=== PATIENT | male | born 1945 | race Caucasian/White ===

== ENCOUNTER → 2021-06-10 | Day surgery (SDC) | payer MEDICARE, OTHER ==
[~2021-06-10] MED LIST: ACETAMINOPHEN 500 MG TABLET PO PRN; ALBU2.5V8 IH; ASPI-482 PO; BALANCED SALT IRRIG SOLN NO.2 500 ML IO ONE; BENZONATATE 100 MG CAPSULE. PO PRN; BRIMONIDINE 0.2% OPHTH SOLUTION 5ML BOTTLE. OD ONE; CARV12.5 PO; CEFUROXIME OPHTH 4 MG/0.4 ML SYRINGE. OD ONE; CHOL20002 PO; CHONDROIT-SOD-HYALURONATE KIT. OD ONE; DOXA4TAB2 PO; IBUPROFEN 200 MG TABLET PO PRN; INSU100I13 SQ; INSU100I17 SQ; IPRATRPIUM/ALBUTEROL 0.5/2.5MG 3 ML NEBU. NEB PRN; IV RINGERS SOLUTION,LACTATED 1,000 ML IV SCH; LIDO/EPI IN BSS OPHTH 2.7 ML SYRINGE. OD ONE; LIDOCAINE 2% JELLY 6ML IN APPLICATOR. ONE; MAGNESIUM-VIT1 EACH PO; METF1000 PO; MIDAZOLAM HCL PF 2 MG/2 ML VIAL. IV ONE; ONDANSETRON PF 4 MG/2 ML VIAL. IV PRN; PHENYLEPHRINE 10% OPHTH SOLUTION 5ML BOTTLE. OD PRN; POVIDONE-IODINE 5% OPHTH SOLUTION 30ML BOTTLE. OD ONE; POVIDONE-IODINE 5% OPHTH SOLUTION 30ML BOTTLE. OD PRN; POVIDONE-IODINE 5% OPHTH SOLUTION 30ML BOTTLE. ONE; PROPARACAINE 0.5% OPHTH SOLUTION 15ML BOTTLE. OD ONE; PROPARACAINE 0.5% OPHTH SOLUTION 15ML BOTTLE. OD PRN; SIMV10TA PO; VALS1TAB19 PO; prednisoLONE ACETATE 1% OPHTH SUSPENSION 5ML BOTTLE. OD ONE
[2021-06-10] MEDS: TROPICAMIDE 1% OPHTH SOLUTION 15ML BOTTLE. OD SCH ×3 (07:18→07:31)
[2021-06-10] MEDS: KETOROLAC TROMETHAMINE 0.5% OPHTH SOLUTION BOTTLE. OD SCH ×2 (07:18→07:25)
[2021-06-10] MEDS: PHENYLEPHRINE 2.5% OPHTH SOLUTION 2ML BOTTLE. OD SCH ×3 (07:19→07:31)
[2021-06-10] MEDS: TOBRAMYCIN 0.3% OPHTH SOLUTION 5ML BOTTLE. OD SCH ×2 (07:19→07:25)
--- NOTE | 2021-06-10 08:37 | PDOC4 ---
SURGEON: Maurice Donahue MD Date of Procedure: 06/10/21 PREOP Diagnosis Visually significant cataract: Right Eye OD Pre-existing astigmatism: Right Eye OD POSTOP Diagnosis Same PROCEDURE: Phaco w/ posterior chamber IOL: Right Eye OD ANESTHESIA Deep forniceal periocular 2% Lidocaine jelly [facility]/retro bulbar block with 2% Lidocaine with 0.5% Marcaine DESCRIPTION OF PROCEDURE The risks, benefits, and alternatives were discussed with the patient who elected to proceed. Informed consent was obtained in writing and placed in the chart After anesthetizing the eye topically, the patient was taken to the operating room, and the operative eye was prepped and draped in the usual sterile fashion for ocular surgery. A wire lid speculum was placed. A 1-mm clear corneal paracentesis incision was created with the side-port blade at a position three o'clock hours clockwise from the temporal cornea. Then, 1% non-preserved Lidocaine with epinephrine was injected into the anterior chamber followed by viscoelastic. Cotton-tipped applicators were used to stabilize the globe, and a 2.4 mm keratome was used to create a self-sealing incision in clear cornea at the temporal limbus. The Utrata forceps were used to create a continuous curvilinear capsulorrhexis. Balanced saline solution was injected v ia cannula beneath the capsulorrhexis edge to hydrodissect the lens nucleus and cortex from the lens capsule. The phacoemulsification handpiece and a chopping instrument were then used to remove the lens nucleus. The remaining epinuclear material and cortex were removed with the irrigation/aspiration handpiece. Viscoelastic was used to re-inflate the lens capsule, and the intraocular lens was injected directly into the capsular bag. The corneal wound edges were hydrated with balanced salt solution on a cannula and the irrigation/aspiration handpiece was used to extract the remaining viscoelastic. Cefuroxime 0.1mg/ml / Vigamox 0.5% was injected into the anterior chamber intracamerally. The wounds were inspected and found to be watertight at an appropriate intraocular pressure. Topical antibiotic drops were placed on the corneal surface. LRI: No If Yes, Number [] Palm [] Length [] degrees Depth [] microns Incision Palm: 180 Toric Lens Palm [162] Patch/shield with Maxitrol/Tobradex/Erythromycin ointment: 2 Yes No Co-managed patients/postop examination stable for co-management with referring doctor. EBL EBL: None SPECIMANS COLLECTED Specimens Collected: None MAURICE DONAHUE MD Jun 10, 2021 08:37
[2021-06-10 08:50] VITALS: BP 158/88
== END | disposition home or self-care (01) ==
LOC: SURG 06:51
PROVIDERS: ATTEND Ophthalmology
DX: E11.36 Type 2 diabetes mellitus with diabetic cataract (principal); H25.11 Age-related nuclear cataract, right eye; H52.201 Unspecified astigmatism, right eye; I10 Essential (primary) hypertension; G47.33 Obstructive sleep apnea (adult) (pediatric); E66.01 Morbid (severe) obesity due to excess calories; E78.00 Pure hypercholesterolemia, unspecified; K21.9 Gastro-esophageal reflux disease without esophagitis; I48.91 Unspecified atrial fibrillation; J45.909 Unspecified asthma, uncomplicated; Z72.89 Other problems related to lifestyle; Z79.899 Other long term (current) drug therapy; Z79.82 Long term (current) use of aspirin; Z79.4 Long term (current) use of insulin
CPT/HCPCS: 66984; 82947; J2250; V2632

== ENCOUNTER → 2021-06-23 | Day surgery (SDC) | payer MEDICARE, OTHER ==
[~2021-06-23] MED LIST changes: -BRIMONIDINE 0.2% OPHTH SOLUTION 5ML BOTTLE. OD ONE; +BRIMONIDINE 0.2% OPHTH SOLUTION 5ML BOTTLE. OS ONE; -CEFUROXIME OPHTH 4 MG/0.4 ML SYRINGE. OD ONE; +CEFUROXIME OPHTH 4 MG/0.4 ML SYRINGE. OS ONE; -CHONDROIT-SOD-HYALURONATE KIT. OD ONE; +CHONDROIT-SOD-HYALURONATE KIT. OS ONE; +KETOROLAC TROMETHAMINE 0.5% OPHTH SOLUTION BOTTLE. OS SCH; +LEVO200T PO; -LIDO/EPI IN BSS OPHTH 2.7 ML SYRINGE. OD ONE; +LIDO/EPI IN BSS OPHTH 2.7 ML SYRINGE. OS ONE; +MIDAZOLAM HCL PF 2 MG/2 ML VIAL. ONE; -PHENYLEPHRINE 10% OPHTH SOLUTION 5ML BOTTLE. OD PRN; +PHENYLEPHRINE 10% OPHTH SOLUTION 5ML BOTTLE. OS PRN; -POVIDONE-IODINE 5% OPHTH SOLUTION 30ML BOTTLE. OD ONE; -POVIDONE-IODINE 5% OPHTH SOLUTION 30ML BOTTLE. OD PRN; +POVIDONE-IODINE 5% OPHTH SOLUTION 30ML BOTTLE. OS ONE; +POVIDONE-IODINE 5% OPHTH SOLUTION 30ML BOTTLE. OS PRN; -PROPARACAINE 0.5% OPHTH SOLUTION 15ML BOTTLE. OD ONE; -PROPARACAINE 0.5% OPHTH SOLUTION 15ML BOTTLE. OD PRN; +PROPARACAINE 0.5% OPHTH SOLUTION 15ML BOTTLE. OS ONE; +PROPARACAINE 0.5% OPHTH SOLUTION 15ML BOTTLE. OS PRN; +SOTA120T27 PO; +TOBRAMYCIN 0.3% OPHTH SOLUTION 5ML BOTTLE. OS SCH; -prednisoLONE ACETATE 1% OPHTH SUSPENSION 5ML BOTTLE. OD ONE; +prednisoLONE ACETATE 1% OPHTH SUSPENSION 5ML BOTTLE. OS ONE
[2021-06-23] MEDS: TROPICAMIDE 1% OPHTH SOLUTION 15ML BOTTLE. OS SCH ×2 (07:05→07:16)
[2021-06-23] MEDS: PHENYLEPHRINE 2.5% OPHTH SOLUTION 2ML BOTTLE. OS SCH ×2 (07:05→07:16)
--- NOTE | 2021-06-23 08:23 | PDOC4 ---
SURGEON: Maurice Donahue MD Date of Procedure: 06/23/21 PREOP Diagnosis Visually significant cataract: Left Eye OS Pre-existing astigmatism: Left Eye OS POSTOP Diagnosis Same PROCEDURE: Phaco w/ posterior chamber IOL: Left Eye OS ANESTHESIA Deep forniceal periocular 2% Lidocaine jelly [facility]cy/retro bulbar block with 2% Lidocaine with 0.5% Marcaine DESCRIPTION OF PROCEDURE The risks, benefits, and alternatives were discussed with the patient who elected to proceed. Informed consent was obtained in writing and placed in the chart After anesthetizing the eye topically, the patient was taken to the operating room, and the operative eye was prepped and draped in the usual sterile fashion for ocular surgery. A wire lid speculum was placed. A 1-mm clear corneal paracentesis incision was created with the side-port blade at a position three o'clock hours clockwise from the temporal cornea. Then, 1% non-preserved Lidocaine with epinephrine was injected into the anterior chamber followed by viscoelastic. Cotton-tipped applicators were used to stabilize the globe, and a 2.4 mm keratome was used to create a self-sealing incision in clear cornea at the temporal limbus. The Utrata forceps were used to create a continuous curvilinear capsulorrhexis. Balanced saline solution was injected via cannula beneath the capsulorrhexis edge to hydrodissect the lens nucleus and cortex from the lens capsule. The phacoemulsification handpiece and a chopping instrument were then used to remove the lens nucleus. The remaining epinuclear material and cortex were removed with the irrigation/aspiration handpiece. Viscoelastic was used to re-inflate the lens capsule, and the intraocular lens was injected directly into the capsular bag. The corneal wound edges were hydrated with balanced salt solution on a cannula and the irrigation/aspiration handpiece was used to extract the remaining viscoelastic. Cefuroxime 0.1mg/ml / Vigamox 0.5% was injected into the anterior chamber intracamerally. The wounds were inspected and found to be watertight at an appropriate intraocular pressure. Topical antibiotic drops were placed on the corneal surface. LRI: No If Yes, Number [] [place] [] Length [] degrees Depth [] microns Incision [place]: 180 Toric Lens [place] [180] Patch/shield with Maxitrol/Tobradex/Erythromycin ointment: Yes No Co-managed patients/postop examination stable for co-management with referring doctor. EBL EBL: None SPECIMANS COLLECTED Specimens Collected: None MAURICE DONAHUE MD Jun 23, 2021 08:23
[2021-06-23 08:34] VITALS: BP 138/77
== END | disposition home or self-care (01) ==
LOC: SURG 06:38
PROVIDERS: ATTEND Ophthalmology
DX: E11.36 Type 2 diabetes mellitus with diabetic cataract (principal); H25.12 Age-related nuclear cataract, left eye; E78.00 Pure hypercholesterolemia, unspecified; I48.91 Unspecified atrial fibrillation; G47.33 Obstructive sleep apnea (adult) (pediatric); K21.9 Gastro-esophageal reflux disease without esophagitis; M19.90 Unspecified osteoarthritis, unspecified site; Z98.890 Other specified postprocedural states; Z79.899 Other long term (current) drug therapy; Z85.850 Personal history of malignant neoplasm of thyroid
CPT/HCPCS: 66984; J2250; V2632

== ENCOUNTER 2021-10-27 14:40 | Emergency (ER) | payer MEDICARE, OTHER ==
[~2021-10-27] VITALS: Ht 177.8 cm; Wt 125.0 kg
[~2021-10-27 14:40] MED LIST changes: -ACETAMINOPHEN 500 MG TABLET PO PRN; -BALANCED SALT IRRIG SOLN NO.2 500 ML IO ONE; -BENZONATATE 100 MG CAPSULE. PO PRN; -BRIMONIDINE 0.2% OPHTH SOLUTION 5ML BOTTLE. OS ONE; -CEFUROXIME OPHTH 4 MG/0.4 ML SYRINGE. OS ONE; -CHONDROIT-SOD-HYALURONATE KIT. OS ONE; -IBUPROFEN 200 MG TABLET PO PRN; -IPRATRPIUM/ALBUTEROL 0.5/2.5MG 3 ML NEBU. NEB PRN; -IV RINGERS SOLUTION,LACTATED 1,000 ML IV SCH; -KETOROLAC TROMETHAMINE 0.5% OPHTH SOLUTION BOTTLE. OS SCH; -LIDO/EPI IN BSS OPHTH 2.7 ML SYRINGE. OS ONE; -LIDOCAINE 2% JELLY 6ML IN APPLICATOR. ONE; -MIDAZOLAM HCL PF 2 MG/2 ML VIAL. IV ONE; -MIDAZOLAM HCL PF 2 MG/2 ML VIAL. ONE; -ONDANSETRON PF 4 MG/2 ML VIAL. IV PRN; -PHENYLEPHRINE 10% OPHTH SOLUTION 5ML BOTTLE. OS PRN; -POVIDONE-IODINE 5% OPHTH SOLUTION 30ML BOTTLE. ONE; -POVIDONE-IODINE 5% OPHTH SOLUTION 30ML BOTTLE. OS ONE; -POVIDONE-IODINE 5% OPHTH SOLUTION 30ML BOTTLE. OS PRN; -PROPARACAINE 0.5% OPHTH SOLUTION 15ML BOTTLE. OS ONE; -PROPARACAINE 0.5% OPHTH SOLUTION 15ML BOTTLE. OS PRN; -TOBRAMYCIN 0.3% OPHTH SOLUTION 5ML BOTTLE. OS SCH; -prednisoLONE ACETATE 1% OPHTH SUSPENSION 5ML BOTTLE. OS ONE
[2021-10-27] MEDS ORDERED: DEXTROSE 50% 25 GM / 50ML DISP.SYRIN. IV ONE ×2 (15:14→15:15)
[2021-10-27] MEDS ORDERED: IV NORMAL SALINE 1,000ML 1,000 ML IV ONE ×2 (15:15→17:30)
[2021-10-27] MEDS ORDERED: IOHEXOL 350 MG/ML 100 ML VIAL. IV ONE (15:30)
[2021-10-27 15:46] LABS: BASO % 0 % (0-3); EOS % 0 % (0-3); HEMATOCRIT 40.2 % (39.0-53.0); HEMOGLOBIN 13.5 g/dL (13.0-17.5); LYMPH # 0.3 x10^3/uL (1.0-4.8); LYMPH % 3 % (24-48); MEAN CORPUSCULAR HEMOGLOBIN 28 pg (25-35); MEAN CORPUSCULAR HGB CONC 34 g/dL (31-37); MEAN CORPUSCULAR VOLUME 85 fL (79-100); MONO # 0.2 x10^3/uL (0.0-1.1); MONO % 2 % (0-9); NEUT # 9.6 x10^3uL (1.8-7.7); NEUT % 95 % (31-73); PLATELET COUNT 168 x10^3/uL (140-400); RED BLOOD COUNT 4.74 x10^6/uL (4.30-5.70); RED CELL DISTRIBUTION WIDTH 16.5 % (11.5-14.5); WHITE BLOOD COUNT 10.1 x10^3/uL (4.0-11.0)
[2021-10-27 15:55] LABS: CALCIUM 8.3 mg/dL (8.5-10.1); CREATININE 1.5 mg/dL (0.7-1.3); GFR 45.4
[2021-10-27] MEDS ORDERED: ACETAMINOPHEN 500 MG TABLET PO ONE (16:00)
[2021-10-27 16:01] LABS: ALBUMIN 3.3 g/dL (3.4-5.0); ALBUMIN/GLOBULIN RATIO 0.9 (1.0-1.7); TOTAL BILIRUBIN 0.5 mg/dL (0.2-1.0); TOTAL PROTEIN 6.8 g/dL (6.4-8.2)
--- NOTE | 2021-10-27 16:06 | PHYS DOC ---
Past History Past Medical History: A-Fib, CAD, Diabetes, High Cholesterol, Hypertension, Hypothyroid, Other Additional Past Medical Histor: BPH (ROBBI ALVARENGA APRN) Past Surgical History: Angioplasty, TURP, Other Additional Past Surgical Histo: Cardiac ablation last month, cataract (ROBBI ALVARENGA APRN) Smoking: Non-smoker Alcohol Use: None Drug Use: None (ROBBI ALVARENGA APRN) General Adult EDM: Chief Complaint: MULTIPLE COMPLAINTS HPI: HPI: Patient is a 76-year-old male that presents today with dizziness. 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 Patient presents here after calling his primary care physician, states he is still continued to be dizziness and he is not sure that he could stand and not feel like he was going to fall over. Agtwc-ca-togg glucose done by the nurses here in the department showed a glucose of 59. Patient states he did eat breakfast this morning but has not eaten a meal since then, he did take all of his diabetes medicine that was prescribed for today early this morning. (ROBBI ALVARENGA APRN) Review of Systems: Review of Systems: Constitutional: Fever Eyes: Denies change in visual acuity HENT: Denies nasal congestion or sore throat Respiratory: Denies cough or shortness of breath Cardiovascular: Denies chest pain or edema GI: Denies abdominal pain, nausea, vomiting, bloody stools or diarrhea : Denies dysuria Musculoskeletal: Denies back pain or joint pain Integument: Denies rash Neurologic: Dizziness Endocrine: Denies polyuria or polydipsia Lymphatic: Denies swollen glands Psychiatric: Denies depression or anxiety (ROBBI ALVARENGA APRN) Current Medications: Current Meds: Albuterol 2 puffs as needed Cardura 8 mg at at bedtime Crestor 10 mg at at bedtime 5 mg twice daily Finasteride 5 mg daily Glucophage 2000 mg daily Jardiance 25mg qd Lantus insulin 70 units p.m., 50 units a.m. NovoLog insulin 25 units with meals Omeprazole 20 mg daily sotalol 120 mg twice daily Synthroid 200 mcg daily Trulicity 1.5 mg weekly Valsartan 160 mg twice daily Vitamin D 1000 international units daily Current Medications Medications (Trade) Dose Ordered Sig/Lucero Start Time Stop Time Status Last Admin Dose Admin Dextrose (Dextrose 50%-Water Syringe) 12.5 gm 1X ONCE 10/27/21 15:15 10/27/21 15:27 DC 10/27/21 15:24 12.5 GM Iohexol (Omnipaque 350 Mg/ml) 100 ml 1X ONCE 10/27/21 15:30 10/27/21 15:31 DC Sodium Chloride 1,000 ml @ 1,000 mls/hr 1X ONCE 10/27/21 15:15 10/27/21 16:14 10/27/21 15:25 1,000 MLS/HR (ROBBI ALVARENGA APRN) Allergies: Allergies: Allergies Coded Allergies Type Severity Reaction Last Updated Verified No Known Drug Allergies 06/23/21 No (ROBBI ALVARENGA APRN) Physical Exam: PE: Constitutional: Obese male, mild distress, nontoxic in appearance, HENT: Normocephalic, atraumatic, bilateral external ears normal, oropharynx moist, no oral exudates, nose normal. [] Eyes: PERRLA, EOMI, conjunctiva normal, no discharge. [] Neck: Normal range of motion, no tenderness, supple, no stridor. [] Cardiovascular:Heart rate regular rhythm, no murmur [] Lungs & Thorax: Bilateral breath sounds clear to auscultation [] Abdomen: Bowel sounds normal, soft, diffuse tenderness, no masses, no pulsatile masses. [] Skin: Warm, dry, no erythema, no rash. [] Back: No tenderness, no CVA tenderness. [] Extremities: No tenderness, no cyanosis, no clubbing, ROM intact, trace edema, pedal pulses 1+, radial pulses 1+ Neurologic: Alert and oriented X 3, normal motor function, normal sensory function, no focal deficits noted. [] Psychologic: Affect normal, judgement normal, mood normal. [] (ROBBI ALVARENGA APRN) Current Patient Data: Labs: Laboratory Tests Test 10/27/21 15:04 10/27/21 15:05 10/27/21 15:30 10/27/21 16:01 Glucose (Fingerstick) 59 mg/dL 73 mg/dL White Blood Count 10.1 x10^3/uL Red Blood Count 4.74 x10^6/uL Hemoglobin 13.5 g/dL Hematocrit 40.2 % Mean Corpuscular Volume 85 fL Mean Corpuscular Hemoglobin 28 pg Mean Corpuscular Hemoglobin Concent 34 g/dL Red Cell Distribution Width 16.5 % Platelet Count 168 x10^3/uL Neutrophils (%) (Auto) 95 % Lymphocytes (%) (Auto) 3 % Monocytes (%) (Auto) 2 % Eosinophils (%) (Auto) 0 % Basophils (%) (Auto) 0 % Neutrophils # (Auto) 9.6 x10^3uL Lymphocytes # (Auto) 0.3 x10^3/uL Monocytes # (Auto) 0.2 x10^3/uL Eosinophils # (Auto) 0.0 x10^3/uL Basophils # (Auto) 0.0 x10^3/uL Prothrombin Time 11.4 SEC Prothromb Time International Ratio 1.1 Activated Partial Thromboplast Time 29 SEC Sodium Level 139 mmol/L Potassium Level 4.0 mmol/L Chloride Level 105 mmol/L Carbon Dioxide Level 21 mmol/L Anion Gap 13 Blood Urea Nitrogen 28 mg/dL Creatinine 1.5 mg/dL Estimated GFR (Cockcroft-Gault) 45.4 BUN/Creatinine Ratio 19 Glucose Level 58 mg/dL Lactic Acid Level 1.9 mmol/L Calcium Level 8.3 mg/dL Total Bilirubin 0.5 mg/dL Aspartate Amino Transf (AST/SGOT) 17 U/L Alanine Aminotransferase (ALT/SGPT) 21 U/L Alkaline Phosphatase 65 U/L Troponin I High Sensitivity 17 ng/L Total Protein 6.8 g/dL Albumin 3.3 g/dL Albumin/Globulin Ratio 0.9 SARS-CoV-2 Antigen (Rapid) Negative Test 10/27/21 17:24 10/27/21 17:45 Glucose (Fingerstick) 67 mg/dL Urine Collection Type Unknown Urine Color Yellow Urine Clarity Clear Urine pH 5.5 Urine Specific [place] <=1.005 Urine Protein Trace Urine Glucose (UA) 100 mg/dL Urine Ketones (Stick) Neg mg/dL Urine Blood Trace Urine Nitrite Neg Urine Bilirubin Neg Urine Urobilinogen Dipstick 0.2 mg/dL Urine Leukocyte Esterase Neg Urine RBC 1-2 /HPF Urine WBC 1-4 /HPF Urine Squamous Epithelial Cells Few /LPF Urine Bacteria 0 /HPF Current Medications Medications (Trade) Dose Ordered Sig/Lucero Route PRN Reason Start Time Stop Time Status Last Admin Dose Admin Dextrose (Dextrose 50%-Water Syringe) 25 gm STK-MED ONCE IV 10/27/21 15:14 10/27/21 15:14 DC Dextrose (Dextrose 50%-Water Syringe) 12.5 gm 1X ONCE IV 10/27/21 15:15 10/27/21 15:27 DC 10/27/21 15:24 Sodium Chloride 1,000 ml @ 1,000 mls/hr 1X ONCE IV 10/27/21 15:15 10/27/21 16:14 DC 10/27/21 15:25 Iohexol (Omnipaque 350 Mg/ml) 100 ml 1X ONCE IV 10/27/21 15:30 10/27/21 15:31 DC 10/27/21 16:27 Acetaminophen (Tylenol) 1,000 mg 1X ONCE PO 10/27/21 16:00 10/27/21 16:01 DC 10/27/21 16:06 Sodium Chloride 1,000 ml @ 1,000 mls/hr 1X ONCE IV 10/27/21 17:30 10/27/21 18:29 10/27/21 17:29 Laboratory Tests Test 10/27/21 15:04 10/27/21 15:05 Glucose (Fingerstick) 59 mg/dL (70-99) L White Blood Count 10.1 x10^3/uL (4.0-11.0) Red Blood Count 4.74 x10^6/uL (4.30-5.70) Hemoglobin 13.5 g/dL (13.0-17.5) Hematocrit 40.2 % (39.0-53.0) Mean Corpuscular Volume 85 fL (79-100) Mean Corpuscular Hemoglobin 28 pg (25-35) Mean Corpuscular Hemoglobin Concent 34 g/dL (31-37) Red Cell Distribution Width 16.5 % (11.5-14.5) H Platelet Count 168 x10^3/uL (140-400) Neutrophils (%) (Auto) 95 % (31-73) H Lymphocytes (%) (Auto) 3 % (24-48) L Monocytes (%) (Auto) 2 % (0-9) Eosinophils (%) (Auto) 0 % (0-3) Basophils (%) (Auto) 0 % (0-3) Neutrophils # (Auto) 9.6 x10^3uL (1.8-7.7) H Lymphocytes # (Auto) 0.3 x10^3/uL (1.0-4.8) L Monocytes # (Auto) 0.2 x10^3/uL (0.0-1.1) Eosinophils # (Auto) 0.0 x10^3/uL (0.0-0.7) Basophils # (Auto) 0.0 x10^3/uL (0.0-0.2) Sodium Level 139 mmol/L (136-145) Potassium Level 4.0 mmol/L (3.5-5.1) Chloride Level 105 mmol/L (98-107) Carbon Dioxide Level 21 mmol/L (21-32) Anion Gap 13 (6-14) Blood Urea Nitrogen 28 mg/dL (8-26) H Creatinine 1.5 mg/dL (0.7-1.3) H Estimated GFR (Cockcroft-Gault) 45.4 BUN/Creatinine Ratio 19 (6-20) Glucose Level 58 mg/dL (70-99) L Calcium Level 8.3 mg/dL (8.5-10.1) L Total Bilirubin Pending Aspartate Amino Transferase (AST) Pending Alanine Aminotransferase (ALT) Pending Alkaline Phosphatase Pending Total Protein Pending Albumin Pending Albumin/Globulin Ratio Pending Vital Signs: Vital Signs Date Time Temp Pulse Resp B/P (MAP) Pulse Ox O2 Delivery O2 Flow Rate FiO2 10/27/21 19:14 72 17 99/46 (63) 98 10/27/21 18:25 71 17 106/46 (66) 98 10/27/21 18:10 80 17 97/58 (71) 98 10/27/21 17:40 78 24 120/54 (76) 97 10/27/21 17:25 98.8 10/27/21 17:10 72 19 99/43 (61) 97 10/27/21 16:40 73 24 110/48 (68) 97 10/27/21 15:15 85 17 108/54 (72) 97 10/27/21 14:50 86 19 111/55 (73) 98 10/27/21 14:40 101.4 85 18 111/55 (73) 98 Room Air Vital Signs Date Time Temp Pulse Resp B/P (MAP) Pulse Ox O2 Delivery O2 Flow Rate FiO2 10/27/21 14:40 101.4 85 18 111/55 (73) 98 Room Air (ROBBI ALVARENGA APRN) EKG: EKG: EKG completed at [address] Huff at 1451 sinus arrhythmia with prolonged QT noted with a rate of 85 no STEMI HI interval of 184 ms with a QT interval of 496 ms [] (ROBBI ALVARENGA PATIENT RELATIONS MANAGER) Radiology/Procedures: Radiology/Procedures: [REASON: back pain r/o dissection - 90mls omni 350 PROCEDURE: CT ANGIO CHEST ABD PELVIS EXAM: CT ANGIOGRAM CHEST, ABDOMEN AND PELVIS WITH IV CONTRAST CLINICAL HISTORY: back pain r/o dissection COMPARISON: none TECHNIQUE: Helical CT of the abdomen and pelvis was performed following the administration of intravenous contrast. Axial, coronal and sagittal reformatted images were generated. PQRS compliance statement - One or more of the following individualized dose reduction techniques were utilized for this study: 1. Automated exposure control 2. Adjustment of the mA and/or kV according to patient size 3. Use of iterative reconstruction technique FINDINGS: CT Angiogram: New thoracic and abdominal aorta is normal in caliber. No evidence for dissection. Origin of the great vessels are widely patent, normal in appearance. Bilateral renal arteries are patent. Celiac, SMA and HIMANSHU are widely patent. Limited contrast bolus in the common, internal and external iliac veins without CT evidence to suggest occlusion. Intermittent atheromatous plaque within the aorta and iliacs. Chest: Heart is not enlarged. No pericardial effusion. No pleural effusion. No pneumothorax. No suspicious lung nodule or mass. No thoracic lymphadenopathy. Calcified mediastinal/right hilar lymph node. Calcified granuloma middle lobe. No suspicious lung nodule or mass is seen. Abdomen and Pelvis: No focal liver lesion. Gallbladder is normal. Spleen is unremarkable. Adrenal glands are unremarkable. Pancreas is normal in appearance. Symmetric nephrograms. Left interpolar renal cyst. No hydronephrosis. No hydroureter. There is trace infiltration about the kidneys, nonspecific. Mild infiltration about the bladder. Moderate colonic stool content is seen. No small or large bowel dilatation. No bowel obstruction. Colonic diverticula are seen. No evidence for acute diverticulitis. No abdominal or pelvic ascites. No abdominal or pelvic lymphadenopathy. Fat-containing lesion is seen along the left chest wall, only partially included in the [id number], may be partially extending through a spiculated type hernia, measuring approximately 10 x 9 cm without thick septations or solid component. Bones: No aggressive osseous lesion is seen. Multilevel degenerative changes of the spine are seen particularly in the mid and lower thoracic spine and lumbar spine with moderate to severe disc height loss in the lumbar spine IMPRESSION: Aorta is normal in caliber without evidence for dissection. Electronically signed by: Austyn Avalos MD (10/27/2021 5:12 PM) [facility]] REASON: dizziness PROCEDURE: CT HEAD WO CONTRAST EXAMINATION: CT HEAD/BRAIN WO CLINICAL HISTORY: Dizziness TECHNIQUE: Serial axial images without IV contrast were obtained from the vertex to the foramen magnum. CT Dose Reduction Employed: One or more of the following individualized dose reduction techniques were utilized for this examination: 1. Automated exposure control 2. Adjustment of the mA and/or kV according to patient size 3. Use of iterative reconstruction technique. COMPARISON: None FINDINGS: Acute Change: No evidence of an acute infarct or other acute parenchymal process. Hemorrhage: No evidence of acute intracranial hemorrhage. Mass Lesion/Mass Effect: No evidence of intracranial mass or extraaxial fluid collection. No significant mass effect. Chronic Change: Scattered patchy foci of hypoattenuation in the supratentorial white matter, nonspecific but likely represents minimal microvascular ischemia. Atherosclerotic calcification of the intracranial portion of the bilateral internal carotid arteries. Parenchyma: Mild generalized volume loss. Ventricles: Ventricular enlargement concordant with degree of parenchymal volume loss. Paranasal Sinuses and Skull Base: Visualized paranasal sinuses clear. Visualized skull base and soft tissues unremarkable. IMPRESSION: No evidence of acute intracranial abnormality. Electronically signed by: Robert Pickett DO (10/27/2021 4:49 PM) [facility] (ROBBI ALVARENGA APRN) Heart Score: C/O Chest Pain: N/A Risk Factors: Risk Factors: DM, Current or recent (<one month) smoker, HTN, HLP, family history of CAD, obesity. Risk Scores: Score 0 - 3: 2.5% MACE over next 6 weeks - Discharge Home Score 4 - 6: 20.3% MACE over next 6 weeks - Admit for Clinical Observation Score 7 - 10: 72.7% MACE over next 6 weeks - Early Invasive Strategies (ROBBI ALVARENGA APRN) Course & Med Decision Making: Course & Med Decision Making Pertinent Labs and Imaging studies reviewed. (See chart for details) 1900 at the bedside to review radiology and laboratory results with patient and significant other, patient informed that no cause was found for the fever, I feel like his dizziness was related to the lack of fluids over the last 24 hours, patient states that over the last 12 hours he has been out to dinner and had multiple appetizers at a [employer] last night and I feel like he drank some alcohol as well which can be dehydrating and he only had half a cup of tea this morning and no water. Patient instructed to go home and drink plenty of by mouth fluids avoid caffeine and alcohol, take all home medications as prescribed, patient states they have appointment tomorrow with Dr. Zacarias at 9 AM and I and encouraged him to keep that appointment. Patient instructed to return tonight if he starts feeling bad or has any other concerns (ROBBI ALVARENGA APRN) Dragon Disclaimer: Dragon Disclaimer: This electronic medical record was generated, in whole or in part, using a voice recognition dictation system. (ROBBI ALVARENGA APRN) Departure Departure: Impression: Primary Impression: Acute viral syndrome Additional Impressions: Dehydration Dizziness Disposition: 01 HOME / SELF CARE / HOMELESS Condition: STABLE Referrals: LYSSA ZACARIAS MD (PCP) Patient Instructions: Dehydration, Adult, Dizziness, Viral Syndrome Additional Instructions: Continue current medications as prescribed Increase by mouth fluids over the next 24 to 48 hours, treat fever with Tylenol and/or ibuprofen as needed Follow-up with Dr. Zacarias at 9 AM as previously scheduled Return to the emergency department for dizziness, and have a syncopal episode. Attending Signature Attending Signature I have reviewed the PA/HEEL SEATER's note and plan of care. I was available for consultation as needed during the patient's visit in the emergency department. I agree with the clinical impression, plan, and disposition. (SARA HUFF DO) ROBBI ALVARENGA APRN Oct 27, 2021 16:06 SARA HUFF DO Oct 28, 2021 01:28
--- NOTE | 2021-10-27 16:52 | RAD ---
EXAMINATION: CT HEAD/BRAIN WO CLINICAL HISTORY: Dizziness TECHNIQUE: Serial axial images without IV contrast were obtained from the vertex to the foramen magnu m. CT Dose Reduction Employed: One or more of the following individualized dose reduction techniques wer e utilized for this examination: 1. Automated exposure control 2. Adjustment of the mA and/or kV ac cording to patient size 3. Use of iterative reconstruction technique. COMPARISON: None FINDINGS: Acute Change: No evidence of an acute infarct or other acute parenchymal process. Hemorrhage: No evidence of acute intracranial hemorrhage. Mass Lesion/Mass Effect: No evidence of intracranial mass or extraaxial fluid collection. No signific ant mass effect. Chronic Change: Scattered patchy foci of hypoattenuation in the supratentorial white matter, nonspeci fic but likely represents minimal microvascular ischemia. Atherosclerotic calcification of the intrac ranial portion of the bilateral internal carotid arteries. Parenchyma: Mild generalized volume loss. Ventricles: Ventricular enlargement concordant with degree of parenchymal volume loss. Paranasal Sinuses and Skull Base: Visualized paranasal sinuses clear. Visualized skull base and soft tissues unremarkable. IMPRESSION: No evidence of acute intracranial abnormality. Electronically signed by: Robert Pickett DO (10/27/2021 4:49 PM) [facility]
--- NOTE | 2021-10-27 17:15 | RAD ---
EXAM: CT ANGIOGRAM CHEST, ABDOMEN AND PELVIS WITH IV CONTRAST CLINICAL HISTORY: back pain r/o dissection COMPARISON: none TECHNIQUE: Helical CT of the abdomen and pelvis was performed following the administration of intrave nous contrast. Axial, coronal and sagittal reformatted images were generated. PQRS compliance statement - One or more of the following individualized dose reduction techniques wer e utilized for this study: 1. Automated exposure control 2. Adjustment of the mA and/or kV according to patient size 3. Use of iterative reconstruction technique FINDINGS: CT Angiogram: New thoracic and abdominal aorta is normal in caliber. No evidence for dissection. Origin of the grea t vessels are widely patent, normal in appearance. Bilateral renal arteries are patent. Celiac, SMA a nd HIMANSHU are widely patent. Limited contrast bolus in the common, internal and external iliac veins without CT evidence to sugges t occlusion. Intermittent atheromatous plaque within the aorta and iliacs. Chest: Heart is not enlarged. No pericardial effusion. No pleural effusion. No pneumothorax. No suspicious lung nodule or mass. No thoracic lymphadenopathy. Calcified mediastinal/right hilar lymph node. Calcified granuloma middle lobe. No suspicious lung nodule or mass is seen. Abdomen and Pelvis: No focal liver lesion. Gallbladder is normal. Spleen is unremarkable. Adrenal glands are unremarkable . Pancreas is normal in appearance. Symmetric nephrograms. Left interpolar renal cyst. No hydronephro sis. No hydroureter. There is trace infiltration about the kidneys, nonspecific. Mild infiltration ab out the bladder. Moderate colonic stool content is seen. No small or large bowel dilatation. No bowel obstruction. Col onic diverticula are seen. No evidence for acute diverticulitis. No abdominal or pelvic ascites. No a bdominal or pelvic lymphadenopathy. Fat-containing lesion is seen along the left chest wall, only par tially included in the [id number], may be partially extending through a spiculated type hernia, me asuring approximately 10 x 9 cm without thick septations or solid component. Bones: No aggressive osseous lesion is seen. Multilevel degenerative changes of the spine are seen particula rly in the mid and lower thoracic spine and lumbar spine with moderate to severe disc height loss in the lumbar spine IMPRESSION: Aorta is normal in caliber without evidence for dissection. Electronically signed by: Austyn Avalos MD (10/27/2021 5:12 PM) [facility]
--- NOTE | 2021-10-27 17:51 | EKG ---
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
[2021-10-27 18:18] LABS: BILIRUBIN,URINE NEG (NEG); CLARITY,URINE CLEAR; COLOR,URINE YELLOW; GLUCOSE,URINE 100 mg/dL (NEG); NITRITE,URINE NEG (NEG); UROBILINOGEN,URINE 0.2 mg/dL (0.2 mg/dL)
[2021-10-27 18:19] LABS: BACTERIA,URINE 0 /HPF (0-FEW); SQUAMOUS EPITHELIAL CELL,UR FEW /LPF
[2021-10-27 19:14] VITALS: BP 99/46
== END 2021-10-27 19:21 | disposition home or self-care (01) ==
LOC: ER 14:40
DX: B34.9 Viral infection, unspecified (principal); E86.0 Dehydration; R42 Dizziness and giddiness; I48.91 Unspecified atrial fibrillation; I25.10 Atherosclerotic heart disease of native coronary artery without angina pectoris; E11.9 Type 2 diabetes mellitus without complications; E78.00 Pure hypercholesterolemia, unspecified; I10 Essential (primary) hypertension; E03.9 Hypothyroidism, unspecified; Z20.822 Contact with and (suspected) exposure to COVID-19
CPT/HCPCS: 36415; 70450; 71275; 74174; 74175; 80053; 81001; 82947; 83605; 84484; 85025; 85610; 85730; 87426; 93005; 96361; 96374; 99285; C9803; J7030; Q9967; U0003